=== PATIENT | female | born 1965 | race African-American/Black ===

== ENCOUNTER 2017-11-25 05:10 | Inpatient (IN) | payer MEDICARE, OTHER ==
[2017-11-22 12:07] LABS: BASOPHILS % 0.3 % (0.0-1.0); EOSINOPHILS # (AUTO) 0.2 (0.0-0.4); EOSINOPHILS % 2.4 % (0.0-6.0); HEMATOCRIT 42.1 % (34.2-44.1); HEMOGLOBIN 12.9 g/dL (12.0-16.0); LYMPHOCYTES % 31.7 % (18.0-39.1); MEAN CORPUSCULAR HGB CONC 30.6 g/dL (31-35); MEAN CORPUSCULAR VOLUME 84.7 fL (81-99); MONOCYTES # (AUTO) 0.4 (0.2-0.8); MONOCYTES % 6.9 % (4.4-11.3); NEUTROPHILS # (AUTO) 3.7 (2.1-6.9); NEUTROPHILS % 58.5 % (38.7-80.0); PLATELET COUNT 331 x10e3/uL (140-360); RED BLOOD COUNT 4.97 x10e6/uL (3.6-5.1)
[2017-11-22 12:25] LABS: ANION GAP 15.6 mmol/L (8-16); BLOOD UREA NITROGEN 7 mg/dL (7-26); BUN/CREATININE RATIO 8 (6-25); CALCIUM 9.9 mg/dL (8.4-10.2); CARBON DIOXIDE 30 mmol/L (22-29); CHLORIDE 98 mmol/L (98-107); CREATININE, SERUM 0.86 mg/dL (0.57-1.11); EST GLOMERULAR FILTRATION RATE > 60 ML/MIN (60-); GLUCOSE 107 mg/dL (74-118); POTASSIUM 3.6 mmol/L (3.5-5.1); SODIUM 140 mmol/L (136-145)
[~2017-11-25] VITALS: Ht 165.1 cm; Wt 163.3 kg
[~2017-11-25 05:10] MED LIST: CYCLOBENZAPRINE10 MG PO; CYMBALTA30 MG; GABAPENTIN300 MG PO; HYDRALAZINE HCL25 MG PO; LASIX40 MG PO; METOPROLOL TART50 MG PO; NAPROXEN250 MG PO; RANITIDINE HCL150 M1; TRIBENZOR 40-11 EAC1; [UNRECOGNIZED DRUG - CODE]
[2017-11-25] MEDS ORDERED: CEFAZOLIN SOD 2 GM/D5W 50ML 50 ML IV ONE (05:14)
[2017-11-25] MEDS ORDERED: BUPIVACAINE 0.25% 30ML SDV INJ ONE (06:37)
[2017-11-25] MEDS ORDERED: HYDROGEN PEROXIDE 120 ML BTL ONE (07:05)
--- NOTE | 2017-11-25 10:45 | Operative Report ---
DATE OF PROCEDURE: November 25, 2017 PREOPERATIVE DIAGNOSES 1. Morbid obesity, body mass index 62.6, weight 376 pounds. 2. Hypertension. 3. Nausea and vomiting due to Lap-Band placement. 4. Gastroesophageal reflux disease. 5. Fibromyalgia. POSTOPERATIVE DIAGNOSES 1. Morbid obesity, body mass index 62.6, weight 376 pounds. 2. Hypertension. 3. Nausea and vomiting due to Lap-Band placement. 4. Gastroesophageal reflux disease. 5. Fibromyalgia. PREOP INDICATIONS: Treat disease, prevent morbidity related to conditions of obesity. PROCEDURES 1. Laparoscopic sleeve gastrectomy (94034). 2. Laparoscopic removal of adjustable gastric band DICTATION STOPPED AT THIS POINT. REMOVE THIS OP NOTE. NEW OP NOTE DICTATED. Job#: [id number] LOU YOST
--- NOTE | 2017-11-25 10:57 | Operative Report ---
DATE OF PROCEDURE: November 25, 2017 PREOPERATIVE DIAGNOSES 1. Morbid obesity, body mass index 62.6, weight 376 pounds. 2. Hypertension. 3. Nausea and vomiting. 4. Gastroesophageal reflux disease. 5. Fibromyalgia. POSTOPERATIVE DIAGNOSES 1. Morbid obesity, body mass index 62.6, weight 376 pounds. 2. Hypertension. 3. Nausea and vomiting. 4. Gastroesophageal reflux disease. 5. Fibromyalgia. PREOPERATIVE INDICATIONS 1. Treat disease, prevent complications related to comorbid conditions of obesity. 2. Remote adjustable gastric band due to severe nausea and vomiting. PROCEDURES 1. Laparoscopic sleeve gastrectomy. 2. Laparoscopic removal of adjustable gastric band and subcutaneous port. FLUIDS: 1600 mL crystalloid. ANESTHESIA: General. WAREHOUSING TECHNICIAN: Alon Reese, surgical first beater (needed due to complexity of case). EBL: 100 mL. DRAINS: A 19-Eritrean round DIMAS. COMPLICATIONS: None. SPECIMENS 1. Adjustable gastric band with subcutaneous port and catheter component. 2. Partial stomach. GRAFTS: None. FINDINGS 1. Moderate adhesions from intact adjustable gastric band. 2. Negative intraoperative EGD leak test. PROCEDURE IN DETAIL: The patient was brought to the operating room and was intubated under general endotracheal anesthesia. She was positioned supine with both arms abducted and all pressure points appropriately padded. She was sterilely prepped and draped in the usual fashion. A preprocedure pause was performed identifying the patient, the use of perioperative antibiotics, intended procedure, and the staff surgeon. A primary 5 mm left subcostal incision was made and a Veress needle was inserted and insufflated the abdomen to a pressure of 15 mmHg of pressure. A 0-degree, 5-mm Optiview trocar was placed under direct visualization. No injuries were noted. Five additional trocars were placed in the standard positions. A liver retractor was placed. Using the harmonic scalpel, I dissected out the adjustable gastric band along the proximal stomach. I was able to free it up from all its attachments and cut it with the scissors. We then removed this through the right periumbilical port site and cut the catheter that was still in the intra-abdominal space. Once this was removed, I then mobilized the greater curvature of the stomach by ligating the gastroepiploic, short gastric, and posterior short gastric vessels using the [place] LigaSure device all up to the left crux of the diaphragm and about 4 cm proximal to the pyloric valve. I then placed an adult size endoscope, 32-Eritrean, along the lesser curvature of the stomach to be used as a sizing bougie. I then stapled off the greater curvature of the stomach along the length of the 32-Eritrean endoscope with multiple firings of the purple load 60 mm endo-PETAR stapling device. We did use the seam guard on the stapler for a couple of firings at the level of where the scar tissue was from her previous gastric band. Once this was complete, I then submerged the sleeve under saline and conducted intraoperative EGD leak test. No leaks were identified intraluminally. The sleeve appeared to be patent, without any significant narrowing, and without intraluminal hemorrhaging. I then desufflated the stomach prior to removing the endoscope. We then removed the partial stomach specimen through the right periumbilical port site, and closed the port site with 0 Vicryl suture using the Silverio-Dayna technique. We then achieved hemostasis, and removed the liver retractor. I then placed a 19-Eritrean round DIMAS along the curvature of the stomach, and brought this up through the right flank port site, and secured it to the skin with 2-0 nylon suture. We then desufflated the abdomen and removed the trocars. I then turned my attention to the subcutaneous port, and made a transverse incision overlying the previous scar. Dissection was carried through the subcutaneous tissues. The port was then circumferentially dissected from its attachments and then removed along with the catheter. There was a question of whether part of the catheter still remained in situ in the abdomen. We then put the trocars back in, and explored, but no residual foreign body or catheter was identified. We then closed the port sites and closed the transverse incision with 3-0 Vicryl suture and 4-0 Monocryl suture in a subcuticular fashion. We used 0.25% bupivacaine in both preperitoneal incision sites. Dermabond dressings were applied. The patient tolerated the procedure well. TYPE WOUND: Type 2, clean and contaminated. Job#: [id number] KAYDEN YOST
[2017-11-25] MEDS ORDERED: SCOPOLAMINE 1.5 MG PATCH TOP SCH (12:30)
[2017-11-25 14:08] VITALS: BP 137/88
[2017-11-25 14:46] VITALS: BP 137/88
[2017-11-25] MEDS: SODIUM CHLORIDE 0.9% 1000ML 1,000 ML IV SCH ×2 (15:14→20:54)
[2017-11-25 15:29] VITALS: BP 161/92
[2017-11-25] MEDS: MORPHINE SULFATE 2 MG/ML SYR IV PRN ×3 (15:34→23:45)
[2017-11-25] MEDS: ONDANSETRON HCL INJ 2 MG/ML VIAL IV PRN (15:35)
[2017-11-25] MEDS: HYDRALAZINE HCL 25 MG TAB PO SCH ×2 (18:04→23:00)
[2017-11-25] MEDS ORDERED: FENTANYL CITRATE/PF 100MCG/2 ML INJ ONE (18:38)
[2017-11-25] MEDS ORDERED: MIDAZOLAM HCL 2 MG/2 ML VIAL ONE (18:38)
--- NOTE | 2017-11-25 18:39 | Consultation ---
DATE OF CONSULTATION: November 25, 2017 INTERNAL MEDICINE CONSULTATION REASON FOR CONSULTATION: Medical management. HISTORY OF PRESENT ILLNESS: This is a 51-year-old woman who underwent successful sleeve gastrectomy today at [facility]. Patient suffers from extreme obesity, BMI of 62, as well as hypertension and fibromyalgia. Patient states in 2010 she underwent a gastric banding with no subsequent meaningful weight loss. Patient currently voices no complaints. REVIEW OF SYSTEMS GENERAL: Weight has been steadily increasing over the last few years unintentionally. No fever or chills. She does have generalized aches and pains from her fibromyalgia as well as arthritic knee pain. HEENT: No headaches. No visual changes. CARDIOVASCULAR/RESPIRATORY: No chest pain, no shortness of breath, no cough, no asthma. GI: She has GERD symptoms. : Has a Gallagher catheter in place. Denies any UTI symptoms. NEUROMUSCULAR: Complains of arthritic pain in her bilateral knees as well as her lower back. She also complains of diffuse muscle pain from her fibromyalgia. PAST MEDICAL HISTORY 1. Extreme obesity with BMI of 62. 2. Hypertensive heart disease. 3. Bilateral knee degenerative joint disease. 4. GERD. 5. Fibromyalgia. FAMILY HISTORY: Mother of congestive heart failure. Father had type 2 diabetes mellitus. SOCIAL HISTORY: This woman is unemployed but receiving disability benefits. She lives in a house with her 1 adult children and 2 foster children. She was a tobacco smoker but quit in 2009. Drinks alcohol only rarely. NO KNOWN DRUG ALLERGIES. SURGICAL HISTORY 1. Gastric banding in 2010. 2. Right knee arthroscopy twice. 3. Right total knee replacement. 4. Bilateral tubal ligation in 1989. 5. Sleeve gastrectomy today. HOME MEDICATIONS 1. Cyclobenzaprine 7.5 mg t.i.d. 2. Duloxetine 60 mg daily. 3. Furosemide 40 mg daily. 4. Gabapentin 300 mg b.i.d. 5. Hydralazine 25 mg q.i.d. 6. Metoprolol tartrate 100 mg b.i.d. 7. Naproxen 500 mg every 4 hours p.r.n. pain. 8. Olmesartan/amlodipine/hydrochlorothiazide 40/10/25 once daily. 9. Ranitidine 150 mg daily. 10. Iron supplementation daily. PHYSICAL EXAMINATION GENERAL: She is slightly somnolent from her anesthesia earlier today, but she is arousable. Once awakened she is fully oriented. She is in no distress. She is very pleasant and cooperative with exam. VITAL SIGNS: Height if 5 feet 5 inches. Weight is 374 pounds. BMI is 62. Blood pressure 160/90, pulse 96, respiratory rate is 22, oxygen saturation is 96% on room air, temperature 98.6. INTEGUMENT: Skin is warm and dry. No pallor, jaundice, diaphoresis. HEENT: Anicteric sclerae with moist mucous membranes. NECK: Supple. Difficult to assess for jugular venous distention because of patient's body habitus. CARDIOVASCULAR: Distant heart sounds. Tachycardic rate with regular rhythm. Patient has a systolic ejection murmur 2/6 in intensity. LUNGS: No rales, no rhonchi, no wheezes. ABDOMEN: It is obese. Her wounds are currently dressed. No bowel sounds are appreciated. EXTREMITIES: Trace edema in the bilateral lower extremities. She is currently wearing sequential compression devices. NEUROLOGIC: No gross focal deficits appreciated. DIAGNOSES 1. Status post sleeve gastrectomy. 2. Extreme obesity with body mass index of 62. 3. Hypertensive heart disease. 4. Fibromyalgia. PLAN 1. Pain control. 2. Start home blood pressure medications. 3. Encourage incentive spirometry use every hour from 7 a.m. to 7 p.m. 4. Continue enoxaparin for deep venous thrombosis prophylaxis. 5. Will follow up postoperative labs work. I would like to thank Dr. Howell for this generous consult. I spent 45 minutes in the care of this patient. Job#: [id number] EV PRIYANK
[2017-11-25] MEDS ORDERED: ONDANSETRON HCL INJ 2 MG/ML VIAL ONE (19:44)
[2017-11-25] MEDS ORDERED: EPHEDRINE SULFATE INJ 50 MG/10 ML SYR ONE (19:44)
[2017-11-25] MEDS ORDERED: ROCURONIUM BROMIDE 10 MG/ML 5ML VIAL ONE (19:44)
[2017-11-25] MEDS ORDERED: KETOROLAC TROMETHAMINE 30 MG/ML VIAL ONE (19:44)
[2017-11-25] MEDS ORDERED: ACETAMINOPHEN 1000 MG/100 ML IV ONE (19:44)
[2017-11-25] MEDS ORDERED: DEXAMETHASONE SOD PHOS INJ 4 MG/ML VIAL ONE (19:44)
[2017-11-25] MEDS ORDERED: PROPOFOL IV EMULSION 10 MG/ML 20 ML VIAL ONE (19:44)
[2017-11-25] MEDS ORDERED: ATROPINE SULFATE 1 MG/ML VIAL ONE (19:44)
[2017-11-25] MEDS ORDERED: SEVOFLURANE INHAL SOLN 250 ML PEN BTL ONE (19:44)
[2017-11-25] MEDS ORDERED: SUCCINYLCHOLINE 200 MG/10 ML SYR ONE (19:44)
[2017-11-25] MEDS ORDERED: NEOSTIGMINE 5 MG/5ML SYR ONE (19:44)
[2017-11-25] MEDS ORDERED: LIDOCAINE HCL 1% 2 ML AMP ONE (19:44)
[2017-11-25 20:00] VITALS: BP 131/74
[2017-11-25] MEDS: ENOXAPARIN SOD INJ 40 MG/0.4 ML SYR SC SCH (20:54)
[2017-11-26] VITALS: BP 133/73
[2017-11-26] MEDS: MORPHINE SULFATE 2 MG/ML SYR IV PRN ×3 (03:21→20:18)
[2017-11-26 04:00] VITALS: BP 126/79
[2017-11-26] MEDS: SODIUM CHLORIDE 0.9% 1000ML 1,000 ML IV SCH ×3 (05:10→23:00)
[2017-11-26 06:55] LABS: ALANINE AMINOTRANSFERASE 65 IU/L (0-55); ALBUMIN 3.1 g/dL (3.5-5.0); ALBUMIN/GLOBULIN RATIO 0.8 (0.8-2.0); ALKALINE PHOSPHATASE 58 IU/L (40-150); BLOOD UREA NITROGEN 10 mg/dL (7-26); BUN/CREATININE RATIO 12 (6-25); CHLORIDE 100 mmol/L (98-107); CREATININE, SERUM 0.82 mg/dL (0.57-1.11); EST GLOMERULAR FILTRATION RATE > 60 ML/MIN (60-); GLUCOSE 106 mg/dL (74-118); MAGNESIUM 1.8 MG/DL (1.3-2.1); POTASSIUM 4.3 mmol/L (3.5-5.1); SODIUM 138 mmol/L (136-145)
[2017-11-26 07:31] VITALS: BP 146/85
[2017-11-26 07:31] LABS: HEMOGLOBIN 11.8 g/dL (12.0-16.0); LYMPHOCYTES # (AUTO) 1.9 (1.0-3.2); LYMPHOCYTES % 19.6 % (18.0-39.1); MEAN CORPUSCULAR HEMOGLOBIN 26.2 pg (28-32); MEAN CORPUSCULAR HGB CONC 31.1 g/dL (31-35); MEAN CORPUSCULAR VOLUME 84.3 fL (81-99); MONOCYTES # (AUTO) 0.7 (0.2-0.8); NEUTROPHILS # (AUTO) 7.1 (2.1-6.9); NEUTROPHILS % 73.1 % (38.7-80.0); PLATELET COUNT 303 x10e3/uL (140-360); RED BLOOD COUNT 4.51 x10e6/uL (3.6-5.1); RED CELL DISTRIBUTION WIDTH 18.2 % (11.7-14.4)
[2017-11-26 08:23] LABS: ANION GAP 22.3 mmol/L (8-16); CARBON DIOXIDE 20 mmol/L (22-29)
[2017-11-26 08:24] LABS: CALCIUM 8.4 mg/dL (8.4-10.2)
[2017-11-26] MEDS: HYDROCODONE/APAP 7.5MG-325MG 1 EA TAB PO PRN ×2 (08:45→13:32)
[2017-11-26] MEDS: DULOXETINE HCL 30 MG DELAYED RELEASE PO SCH (09:00)
[2017-11-26] MEDS: METOPROLOL TARTRATE 50 MG TAB PO SCH ×2 (09:00→17:38)
[2017-11-26] MEDS: ONDANSETRON HCL INJ 2 MG/ML VIAL IV PRN (09:00)
[2017-11-26] MEDS: HYDRALAZINE HCL 25 MG TAB PO SCH ×4 (09:00→20:15)
[2017-11-26] MEDS: ENOXAPARIN SOD INJ 40 MG/0.4 ML SYR SC SCH ×2 (09:00→17:38)
[2017-11-26 11:26] VITALS: BP 120/72
[2017-11-26 15:22] VITALS: BP 125/70
[2017-11-26 20:00] VITALS: BP 149/118
[2017-11-27] VITALS: BP 137/71
[2017-11-27] MEDS: MORPHINE SULFATE 2 MG/ML SYR IV PRN ×2 (00:03→06:45)
[2017-11-27 04:00] VITALS: BP 129/66
[2017-11-27] MEDS: HYDROCODONE/APAP 7.5MG-325MG 1 EA TAB PO PRN ×2 (04:08→12:07)
[2017-11-27] MEDS: SODIUM CHLORIDE 0.9% 1000ML 1,000 ML IV SCH ×2 (05:38→10:30)
[2017-11-27 06:16] LABS: BASOPHILS % 0.3 % (0.0-1.0); EOSINOPHILS # (AUTO) 0.1 (0.0-0.4); EOSINOPHILS % 1.3 % (0.0-6.0); HEMATOCRIT 36.5 % (34.2-44.1); HEMOGLOBIN 11.4 g/dL (12.0-16.0); LYMPHOCYTES # (AUTO) 2.1 (1.0-3.2); LYMPHOCYTES % 23.5 % (18.0-39.1); MEAN CORPUSCULAR HEMOGLOBIN 26.2 pg (28-32); MEAN CORPUSCULAR HGB CONC 31.2 g/dL (31-35); MEAN CORPUSCULAR VOLUME 83.9 fL (81-99); MONOCYTES # (AUTO) 0.7 (0.2-0.8); MONOCYTES % 7.4 % (4.4-11.3); NEUTROPHILS # (AUTO) 5.9 (2.1-6.9); NEUTROPHILS % 67.2 % (38.7-80.0); PLATELET COUNT 277 x10e3/uL (140-360); RED BLOOD COUNT 4.35 x10e6/uL (3.6-5.1); RED CELL DISTRIBUTION WIDTH 18.1 % (11.7-14.4)
[2017-11-27 06:48] LABS: BLOOD UREA NITROGEN 7 mg/dL (7-26); BUN/CREATININE RATIO 11 (6-25); CALCIUM 8.8 mg/dL (8.4-10.2); CARBON DIOXIDE 26 mmol/L (22-29); CHLORIDE 105 mmol/L (98-107); CREATININE, SERUM 0.66 mg/dL (0.57-1.11); EST GLOMERULAR FILTRATION RATE > 60 ML/MIN (60-); GLUCOSE 92 mg/dL (74-118); SODIUM 140 mmol/L (136-145)
[2017-11-27 08:00] VITALS: BP 133/63
[2017-11-27 08:10] VITALS: BP 133/63
[2017-11-27] MEDS: DULOXETINE HCL 30 MG DELAYED RELEASE PO SCH (08:10)
[2017-11-27] MEDS: HYDRALAZINE HCL 25 MG TAB PO SCH ×3 (08:10→17:06)
[2017-11-27] MEDS: ENOXAPARIN SOD INJ 40 MG/0.4 ML SYR SC SCH ×2 (08:10→16:54)
[2017-11-27] MEDS: METOPROLOL TARTRATE 50 MG TAB PO SCH ×2 (08:10→16:54)
[2017-11-27 12:09] VITALS: BP 150/82
[2017-11-27] MEDS ORDERED: NORCO 7.5-3251 EACH PO (16:15)
[2017-11-27 16:30] VITALS: BP 134/67
--- OUTSIDE RECORDS SUMMARY | 2017-12-03 11:53 | XMS REPORT | Summary of Care ---
Author Organization Unknown Address Unknown Phone Unavailable Encounter MERRY Pat(AMY) [id number] Date(s): 06/26/13 - 06/26/13 [facility] [address] [address] Discharge Diagnosis: Hypertension Discharge Disposition: Home Physician Attending: Bibi Vickers MD Reason for Visit ELEVATED BLOOD PRESSURE Vital Signs Most recent to 1 2 oldest [Reference Range]: Height 165.1 cm (06/26/13 1:01 PM) Temperature Oral 98.7 DegF [96.4-99.1 DegF] (06/26/13 1:01 PM) Systolic Blood 136 mmHg 147 mmHg Pressure [90-140 (06/26/13 4:55 PM) *HI* mmHg] (06/26/13 1:01 PM) Diastolic Blood 83 mmHg 100 mmHg Pressure [60-90 (06/26/13 4:55 PM) *HI* mmHg] (06/26/13 1:01 PM) Respiratory Rate 18 BRMIN [14-20 BRMIN] (06/26/13 1:01 PM) Peripheral Pulse 82 bpm Rate [60-100 bpm] (06/26/13 1:01 PM) Weight 152.273 kg (06/26/13 1:01 PM) Body Mass Index 55.86 m2 (06/26/13 1:01 PM) Problem List Condition Effective Dates Status Health Status Informant Fibromyalgia(Confirm Resolved ed) High Resolved cholesterol(Confirme d) Hypertension(Confirm Resolved ed) Allergies, Adverse Reactions, Alerts Substance Reaction Severity Status NKDA Active Medications cloNIDine 0.2 mg, Route: PO, Drug form: TAB, ONCE, Dosing Weight 152.273, kg, Priority: ST AT, Start date: 06/26/13 15:57:00, Stop date: 06/26/13 15:57:00 Start Date: 06/26/13 Stop Date: 06/26/13 Status: Completed cloNIDine 0.1 mg oral tablet 0.1 mg=1 tab, PO, BID, # 180 tab, 0 Refill(s) Start Date: 06/26/13 Status: Ordered Medications Administered During Your Visit No data available for this section Immunizations No data available for this section Procedures Procedure Type Body Site Date of Procedure Related Diagnosis Hernia repair Knee replacement Laparoscopic adjustable gastric banding Tubal ligation
--- OUTSIDE RECORDS SUMMARY | 2017-12-03 11:53 | XMS REPORT | Continuity of Care Document ---
Author Author [facility] Interface Address Unknown Phone Unavailable Problems Problem Status Onset Date Classification Date Reported Comments Source K76.0 - "FATTY (CHANGE OF) LIVER, NOT E" Active 11/02/[address] [facility] Discharge Diagnosis: Hypertension 06/26/2013 06/29/2013 [facility] ELEVATED BLOOD PRESSURE Active 06/26/2013 [facility] SLEEP APNEA 780.57 OBESITY 278.01 Active 09/15/2010 [place] Fibromyalgia Resolved Problem 06/29/2013 [facility] High cholesterol Resolved Problem 06/29/2013 [facility] Hypertension Resolved Problem 06/29/2013 [facility] SLEEP APNEA NOS Active [facility] MORBID OBESITY Active [facility] Medications Medication Details Route Status Patient Instructions Ordering Provider Order Date Source Clonidine Hydrochloride 0.1 MG Oral Tablet 0.1 mg=1 tab, PO, BID, # 180 tab, 0 Refill(s) Active 06/26/2013 [facility] Clonidine 0.2 mg, Route: PO, Drug form: TAB, ONCE, Dosing Weight 152.273, kg, Priority: STAT, Start date: 06/26/13 15:57:00, Stop date: 06/26/13 15:57:00 Inactive 06/26/2013 [facility] Allergies, Adverse Reactions, Alerts Substance Category Reaction Severity Reaction type Status Date Reported Comments Source Immunizations Immunization Date Given Site Status Last Updated Comments Source Results Order Name Results Value Reference Range Date Interpretation Comments Source Vital Signs Vital Sign Value Date Comments Source Diastolic (mm Hg) 83 06/26/2013 [facility] Systolic (mm Hg) 136 06/26/2013 [facility] Heart Rate 82 06/26/2013 [facility] Respitory Rate 18 06/26/2013 [facility] Diastolic (mm Hg) 100 06/26/2013 [facility] Systolic (mm Hg) 147 06/26/2013 [facility] Temperature Oral (F) 98.7 F 06/26/2013 [facility] Weight 152.273 06/26/2013 [facility] Height 165.1 cm 06/26/2013 [facility] BMI Calculated 55.86 06/26/2013 [facility] Encounters Location Location Details Encounter Type Encounter Number Reason For Visit Attending Provider ADM Date DC Date Status Source [facility] [id number] SLEEP APNEA 780.57 OBESITY 278.01 AKASH GRANT 09/20/2010 Active [facility] [id number] Bibi Vickers 06/26/2013 06/26/2013 [facility] Procedures Procedure Code Date Perfomer Comments Source Hernia repair [id number] [facility] Knee replacement [id number] [facility] Laparoscopic adjustable gastric banding [id number] [facility] Tubal ligation [id number] [facility]
== END 2017-11-27 18:38 | disposition home or self-care (01) | DRG 621 ==
LOC: OR 05:10 → PACU V 12:26 → MED/SURG 13:58
PROVIDERS: ADMIT Surgery; ATTEND Surgery
PROC: 0DP64CZ Removal of Extraluminal Device from Stomach, Percutaneous Endoscopic Approach (ICD-10-PCS; 2017-11-25)
PROC: 0DB64Z3 Excision of Stomach, Percutaneous Endoscopic Approach, Vertical (ICD-10-PCS; principal; 2017-11-25 07:30)
DX: E66.01 Morbid (severe) obesity due to excess calories (principal); K21.9 Gastro-esophageal reflux disease without esophagitis; R11.2 Nausea with vomiting, unspecified; Z68.44 Body mass index [BMI] 60.0-69.9, adult; I10 Essential (primary) hypertension; M79.7 Fibromyalgia; I11.9 Hypertensive heart disease without heart failure; M17.0 Bilateral primary osteoarthritis of knee; Z83.3 Family history of diabetes mellitus; Z82.49 Family history of ischemic heart disease and other diseases of the circulatory system; Z98.84 Bariatric surgery status
CPT/HCPCS: 36415; 80048; 80053; 81025; 83735; 84100; 85025; 86850; 86900; 88307; 93005; 97139; J0461; J0690; J1100; J1650; J1885; J2001; J2250; J2270; J2405; J7030